=== PATIENT | male | born 1965 | race Caucasian/White ===

== ENCOUNTER 2017-03-11 12:27 | Emergency (ER) | payer BC ==
[~2017-03-11] VITALS: Ht 175.3 cm; Wt 78.9 kg
[~2017-03-11 12:27] MED LIST: ATV5X PO; ESCI1TAB10 PO; RISP0.254 PO; WLLSR100 PO
[2017-03-11 12:36] VITALS: TEMP 36.8; Ht 175.3 cm; Wt 78.9 kg
[2017-03-11] MEDS ORDERED: ACETAMINOPHEN 500 MG TAB PO STA (13:06)
[2017-03-11] MEDS ORDERED: KETOROLAC TROMETHAMINE 60 MG/2 ML VIAL IM STA (13:06)
[2017-03-11] MEDS ORDERED: CYCLOBENZAPRINE HCL 5 MG TAB PO STA (13:06)
--- NOTE | 2017-03-11 13:07 | EMERGENCY ROOM VISIT NOTE ---
History Report prepared by Radha: Karrie Gupta Under the Supervision of: Dr. Hubert Sow M.D. First contact with patient: 12:51 Chief Complaint: BACK PAIN Stated Complaint: R SIDED LOWER BACK PAIN,TESTICULAR PAIN History of Present Illness The patient is a 52 year old white male with a past medical history of kidney stones who presents to the ED with a cc of persistent right lower back pain beginning 8 days ago. Positive right testicular pain, right buttocks, thigh, and groin numbness. Negative nausea, vomiting, fever, chills, rash, bruising. He currently rates his discomfort as a 5/10 in severity. The patient states that 8 days ago his pain began and states that he tried exercising his way through the pain. He states that he then went to the chiropractor and had his back adjusted that caused numbness to his right buttocks, thigh, and groin. The patient states that his pain is worsened with movement, and is slightly alleviated with standing. He describes his pain as a sharp pain, but also a burning pain that is similar to his previous kidney stones. The patient states that he typically exercises daily. He denies any recent heavy lifting, but notes that he may have overdone it with yoga. The patient reports alcohol use, but denies any tobacco or drug use. Source of History: patient Onset: 8 days ago Position: back (right lower) Symptom Intensity: 5/10 Quality: burning, sharp Timing: worsening (persistent) Associated Symptoms: + numbness (right buttocks, thigh and groin), No fevers , No chills, No nausea, No vomiting Note: Associated symptoms: right testicular pain Review of Systems See HPI for pertinent positives and negatives. A total of ten systems were reviewed and were otherwise negative. Past Medical & Surgical Medical Problems: (1) Ureteral calculus, right Family History Patient reports no known family medical history. Social History Smoking Status: Never Smoker Alcohol Use: occasionally Drug Use: none Marital Status: Occupation Status: employed Current/Historical Medications Scheduled Prednisone (Prednisone), 50 MG PO DAILY Tramadol Hcl (Ultram), 50 MG PO Q8H Allergies Coded Allergies: Lamotrigine (Unverified Allergy, Severe, "COVERED SPOTS, THEN ITCHY SKIN ARM AND LEGS", 10/02/15) Physical Exam Vital Signs Date Time Temp Pulse Resp B/P (MAP) Pulse Ox O2 Delivery O2 Flow Rate FiO2 03/11/17 14:37 68 16 123/77 100 Room Air 03/11/17 12:36 36.8 87 17 121/78 98 Room Air Physical Exam GENERAL: Awake, alert, well-appearing, NAD HENT: Normocephalic, atraumatic. EYES: Normal conjunctiva. Sclera non-icteric. NECK: Supple. No nuchal rigidity. FROM. RESPIRATORY: CTAB, no rhonchi, wheezing, crackles CARDIAC: RRR, no MRG ABDOMEN: Soft, NTND, BS+ BACK: No CVA tenderness, reproducible right lower lumbar tenderness to palpation , negative elaine test. MSK: No chest wall TTP, no LE edema NEURO: GCS 15, CN 2-12 intact, moves all 4s on command, complains of numbness of right anterior proximal thigh, no saddle anesthesia SKIN: No rash or jaundice noted. Medical Decision & Procedures ER Provider Diagnostic Interpretation: X-ray: Per my interpretation, radiologist review. L-SPINE MIN 4 VIEWS ROUTINE CLINICAL HISTORY: Back pain. Right groin numbness. No known injury. COMPARISON: Lumbar spine radiographs June 01, 2012. FINDINGS: Alignment of the lumbar spine is anatomic. Vertebral body heights are maintained. There is no fracture or suspicious lesion. There is mild disc space narrowing with mild osteophytosis. There is mild facet arthrosis. IMPRESSION: 1. No acute fracture or subluxation of the lumbar spine. 2. Mild multilevel degenerative disc disease and facet arthrosis of the lumbar spine. Electronically signed by: Maurilio Collins M.D. 03/11/2017 2:31 PM Dictated Date/Time: 03/11/2017 2:30 PM Laboratory Results Test 03/11/17 13:30 Urine Color YELLOW Urine Appearance CLEAR (CLEAR) Urine pH 5.0 (4.5-7.5) Urine Specific [place] 1.025 (1.000-1.030) Urine Protein NEG (NEG) Urine Glucose (UA) NEG (NEG) Urine Ketones NEG (NEG) Urine Occult Blood NEG (NEG) Urine Nitrite NEG (NEG) Urine Bilirubin NEG (NEG) Urine Urobilinogen NEG (NEG) Urine Leukocyte Esterase NEG (NEG) Laboratory results reviewed by me Medications Administered Medications (Trade) Dose Ordered Sig/Jr Route Start Time Stop Time Status Last Admin Dose Admin Acetaminophen (Tylenol Tab) 1,000 mg NOW STAT PO 03/11/17 13:06 03/11/17 13:08 DC 03/11/17 13:24 1,000 MG Ketorolac Tromethamine (Toradol Inj) 60 mg NOW STAT IM 03/11/17 13:06 03/11/17 13:08 DC 03/11/17 13:24 60 MG Cyclobenzaprine HCl (Flexeril Tab) 10 mg ONE STAT PO 03/11/17 13:06 03/11/17 13:08 DC 03/11/17 13:23 10 MG Prednisone (PredniSONE TAB) 60 mg STK-MED ONCE .ROUTE 03/11/17 13:19 03/11/17 13:20 DC 03/11/17 13:23 50 MG ED Course 1255: The patient was evaluated in room A3. A complete history and physical exam was performed. 1445: I reevaluated the patient and he is resting comfortably. I discussed the exam findings with him and I discussed the treatment plan. He verbalized complete understanding and agreement. He is ready to go home. Medical Decision Differential diagnosis: Etiologies such as musculoskeletal, disc herniation, fracture, aortic disease, metastatic disease, cord compression, discitis, infection, renal colic, gastrointestinal, acute exacerbation of chronic back pain, sciatica, cauda equina, as well as others were entertained. The patient is a 52 year old white male with a past medical history of kidney stones who presents to the ED with a cc of persistent right lower back pain beginning 8 days ago. The patient was seen and evaluated the bedside. Patient was complaining of some back pain that had been ongoing for approximately 8 days. Patient described the right paraspinal lumbar area. Patient states that he does do a fair amount of yoga and other exercise. Patient states that he woke up with this pain was not after doing any exercise or heavy lifting. Patient was recent seen by chiropractor which point he had some manipulation completed. Patient states he has taken some Advil for some time but nothing else. On exam the patient did complain of some numbness just over the proximal anterior thigh. Patient does not have any bulges does not have any other pain. Patient does have questionable straight leg raise of the right lower extremity as he does have some shooting pain but it does not progress past the thigh. She did have plain films that were completed. Patient did state that he did have a prior history of kidney stones and so urinalysis was sent as well. Patient was also given pain control. Upon reassessment of the patient patient was feeling improved. His L spine series did not show any acute fracture or misalignment. Patient's urinalysis was negative for blood or infection. I did discuss this with the patient. Patient was told that he may continue outpatient follow-up and treatment and was given prescriptions for some additional pain and inflammation. Patient was told to follow-up with his PCP. Do not believe this is cauda equina as patient has no saddle anesthesia no definitive weakness in the lower extremities and does not have any bowel or bladder incontinence or retention. Patient was informed that if he experiences any of the affirmation findings he should return to the emergency department for further evaluation. Patient was in agreement with this plan of care. Patient was given strict follow -up, discharge, and return precautions. All questions were answered. Patient was deemed suitable for outpatient follow-up at this time. Patient agreed with the plan of care and was safely discharged home. Medication Reconcilliation Current Medication List: was personally reviewed by me Impression Primary Impression: Back pain Scribe Attestation The scribe's documentation has been prepared under my direction and personally reviewed by me in its entirety. I confirm that the note above accurately reflects all work, treatment, procedures, and medical decision making performed by me. Departure Information Dispostion Home / Self-Care Prescriptions Tramadol Hcl (ULTRAM) 50 Mg Tab 50 MG PO Q8H, #12 TAB PRN PAIN Prov: Hubert Sow M.D. 03/11/17 Prednisone (PREDNISONE) 50 Mg Tab 50 MG PO DAILY for 4 Days, #44 TAB Prov: Hubert Sow M.D. 03/11/17 Referrals Meño Pan III, CRNP (PCP) Forms HOME CARE DOCUMENTATION FORM, IMPORTANT VISIT INFORMATION Patient Instructions Back Pain - [facility], Back Pain Relieve, My [facility] Additional Instructions Please return to the emergency department if you have worsening or recurrent symptoms not amenable to at-home treatment. Please call for a follow-up appointment with her primary care physician. Please take your medications as prescribed. If you have other concerns and/or complaints please feel free to also call your primary care physician's office or return the ED for further evaluation, management, and treatment. You may take 600 mg Ibuprofen every 6 hours as needed for pain with food for no more than 2 consecutive days. You may take tylenol 1000 mg every 6 hours as needed for pain. You may take motrin and tylenol separately or at the same time. Take your medications as prescribed. Take steroids with food preferably in the morning. Please consider moist heat or ice to the lower back. Please continue stretching exercises as you're able. You have been examined and treated today on an emergency basis only. This is not a substitute for, or an effort to provide, complete comprehensive medical care. It is impossible to recognize and treat all injuries or illnesses in a single emergency department visit. It is therefore important that you follow up closely with [facility], your PCP, and/or your specialist(s). Call as soon as possible for an appointment. Thank you for your time and consideration. I look forward to speaking with you again soon. Please don't hesitate to call us if you have any questions. Problem Qualifiers Primary Impression: Back pain Back pain location: low back pain Chronicity: acute Back pain laterality: right Sciatica presence: with sciatica Sciatica laterality: sciatica of right side Qualified Codes: M54.41 - Lumbago with sciatica, right side
[2017-03-11 13:43] LABS: URINE APPEARANCE CLEAR (CLEAR); URINE BILIRUBIN NEG (NEG); URINE COLOR YELLOW; URINE NITRITE NEG (NEG); URINE SPECIFIC GRAVITY 1.025 (1.000-1.030); UROBILINOGEN NEG (NEG)
[2017-03-11 13:44] LABS: MANUAL MICROSCOPIC REQUIRED? NO; REVIEW REQ? NO
--- NOTE | 2017-03-11 14:32 | DIAGNOSTIC IMAGING REPORT ---
L-SPINE MIN 4 VIEWS ROUTINE CLINICAL HISTORY: Back pain. Right groin numbness. No known injury. COMPARISON: Lumbar spine radiographs June 01, 2012. FINDINGS: Alignment of the lumbar spine is anatomic. Vertebral body heights are maintained. There is no fracture or suspicious lesion. There is mild disc space narrowing with mild osteophytosis. There is mild facet arthrosis. IMPRESSION: 1. No acute fracture or subluxation of the lumbar spine. 2. Mild multilevel degenerative disc disease and facet arthrosis of the lumbar spine. Electronically signed by: Maurilio Collins M.D. 03/11/2017 2:31 PM Dictated Date/Time: 03/11/2017 2:30 PM
[2017-03-11 14:37] VITALS: BP 123/77; PULSE 68; O2SAT 100
[2017-03-11] MEDS ORDERED: PRED50TA PO (14:54)
[2017-03-11] MEDS ORDERED: TRAM-453 PO (14:54)
== END 2017-03-11 15:10 | disposition home or self-care (01) ==
LOC: C.EDB 12:29 → C.EDA 15:10
DX: M54.41 Lumbago with sciatica, right side (principal); Z87.442 Personal history of urinary calculi

== ENCOUNTER → 2017-03-29 | Outpatient (CLI) | payer BC ==
[~2017-03-29] MED LIST changes: -ATV5X PO; -ESCI1TAB10 PO; -RISP0.254 PO; +TRAM-453 PO; -WLLSR100 PO
--- NOTE | 2017-03-29 12:32 | DIAGNOSTIC IMAGING REPORT ---
ABDOMEN ULTRASOUND FOR HERNIA CLINICAL HISTORY: R19.8 Abdominal fullness in right lower quadrant. COMPARISON STUDY: Abdomen and pelvis CT 07/31/2014. FINDINGS: Real-time sonographic imaging of the right inguinal region was performed. There appears to be a tiny focus of fat entering the proximal right inguinal canal. This suggests a tiny inguinal hernia. No fluid collections or masses identified within the right inguinal region. IMPRESSION: Suggestion of a tiny right inguinal hernia. Electronically signed by: Giancarlo Navarro M.D. 03/29/2017 12:31 PM Dictated Date/Time: 03/29/2017 12:29 PM
== END | disposition home or self-care (01) ==
LOC: C.ULTR 11:46
PROVIDERS: ATTEND Nurse Practitioner Family
DX: R19.8 Other specified symptoms and signs involving the digestive system and abdomen (principal)

== ENCOUNTER → 2017-05-19 | Outpatient (CLI) | payer OTHER | END | disposition home or self-care (01) | LOC: C.LAB1850 11:35 | PROVIDERS: ATTEND Neuromusculoskeletal Medicine & OMM | DX: Z11.3 Encounter for screening for infections with a predominantly sexual mode of transmission (principal) ==

== ENCOUNTER → 2017-11-27 | Outpatient (CLI) | payer OTHER | END | disposition home or self-care (01) | LOC: C.LABSPEC 17:08 | PROVIDERS: ATTEND Nurse Practitioner Family | DX: J02.9 Acute pharyngitis, unspecified (principal) ==

== ENCOUNTER 2021-09-29 12:48 | Observation (INO) ==
[2021-09-29 13:34] LABS: Basophils # (auto) 0.04 K/uL (0-0.2); Basophils % (auto) 0.6 %; Eosinophils # (auto) 0.17 K/uL (0-0.5); Eosinophils % (auto) 2.6 %; Hematocrit (blood only) 42.5 % (42-52); Hemoglobin 13.8 g/dL (14.0-18.0); Immature Granulocytes # (auto) 0.02 K/uL (0.00-0.02); Immature Granulocytes % (auto) 0.3 %; Lymphocytes # (auto) 1.89 K/uL (1.2-3.4); Lymphocytes % (auto) 29.4 %; Mean Corpuscular Hemoglobin 23.4 pg (25-34); Mean Corpuscular Hgb Conc 32.5 g/dL (32-36); Mean Platelet Volume 9.9 fL (7.4-10.4); Monocytes # (auto) 0.55 K/uL (0.11-0.59); Monocytes % (auto) 8.6 %; Neutrophils # (auto) 3.75 K/uL (1.4-6.5); Neutrophils % (auto) 58.5 %; Platelet Count 183 K/uL (130-400); RDW Coefficient of Variation 14.5 % (11.5-14.5); RDW Standard Deviation 38.3 fL (36.4-46.3); White Blood Count 6.42 K/uL (4.8-10.8)
[2021-09-29 13:49] LABS: RBC Morphology Unremarkable
[2021-09-29 13:59] LABS: Albumin Globulin Ratio 1.8 (0.9-2); Albumin Level 4.3 gm/dl (3.4-5.0); BUN Creatinine Ratio 14.6 (10-20); Bilirubin,Total 0.9 mg/dl (0.2-1.0); Creatinine Clr Calc Pharmacy 79.1 ml/min; Est GFR (Non-African American) 80.3 ml/min; Globulin 2.4 gm/dl (2.5-4.0); Total Protein 6.7 gm/dl (6.0-8.3)
[2021-09-29] MEDS ORDERED: NORMOSOL-R 2,000 ML IV ONE (14:06)
--- NOTE | 2021-09-29 14:11 | Emergency Department Note ---
Impression & Plan Rhabdomyolysis, Arm pain ED Provider Note NAME: ASHLEY HARLEY AGE: 56 SEX: M : 1965 ARRIVES VIA: Walk-In INFORMANT: Patient ED PROVIDER(S): Toni Miguel DO CHIEF COMPLAINT: B/L arm pain HPI: Patient is a 56-year-old male who presents the ER for bilateral arm pain. He notes he was working out this past Monday and overdid it with his arms. Monday and Monday his arms were sore but then it began to significantly worsen. He was seen and evaluated in the ER last night and had an elevated CK and was instructed to stay but he wanted to go home. He was called by his PCP today and told to come back in. He started to have fullness in his left arm. His right arm is becoming more taut but denies any tingling or numbness or paresthesias. No weakness in his arms. Not noticed any blood in his urine. ROS: See above HPI for pertinent positives & negatives. A total of 10 systems reviewed and were otherwise negative. PAST MEDICAL HISTORY:See Below PAST SURGICAL HISTORY:See Below FAMILY HISTORY:See Below SOCIAL HISTORY:See Below HOME MEDICATIONS:See Below ALLERGIES:See Below VITALS:See Below PHYSICAL EXAMINATION: GENERAL: Sitting up in bed, alert, well appearing, well nourished, no distress, non-toxic EYE EXAM: normal conjunctiva. OROPHARYNX: mucous membranes are moist LUNGS: Clear to auscultation. Normal chest wall mechanics HEART: no murmurs, S1 normal and S2 normal ABDOMEN: abdomen soft, non-tender, normo-active bowel sounds, no masses, no rebound or guarding. UPPER EXTREMITIES: Right biceps and forearm significantly larger than left with faint surrounding erythema. Radial pulses are 2 out of 4 bilaterally. Flexion-extension of bilateral shoulders elbows wrist and grasp 5 out of 5 bilaterally. Sensations intact LOWER EXTREMITIES: No pitting edema. NEURO EXAM: Normal sensorium, cranial nerves II-XII grossly intact, normal speech, no gross weakness of arms, no gross weakness of legs. MEDICAL DECISION MAKING: Patient is a 56-year-old male who presents ER with above-stated complaint. IV was established blood was obtained. Labs show no significant leukocytosis or anemia. BMP along with LFTs bilirubin was unremarkable for an AST of 125 and a CK of 8300 down from 10,000. UA was clean. There is no blood in the urine. Duplex of the right upper extremity was performed and was negative per his request. Patient was given 2 L normal salt. Patient was updated bedside. Patient was discussed the hospitalist admitted for further work-up. Triage Nursing notes reviewed. Limited review of prior medical records performed Vital Signs: reviewed and remarkable for HTN Differential diagnosis: Fracture, subluxation, dislocation, contusion, ligamentous injury, neurovascular, compartment syndrome, rhabdomyolysis, as well as other patho logies. ER treatment provided: See below Diagnostics interpreted by me: ECG: Sinus rhythm rate of 64 Normal axis No PVCs QTC 412 Cardiac Monitoring: An order was placed for continuous cardiac monitoring. The monitor shows a rate of 70 with sinus rhythm. Laboratory studies: As stated above and show below. Imaging studies: See below Consultation(s): Discussed with the hospitalist for further evaluation Procedures: none Critical Care: None Past Med/Surg History Medical History Asymptomatic PVCs ON OCC Bilateral tinnitus Depression CHRONIC Hypothyroidism Kidney stones Sensorineural hearing loss (SNHL) of both ears Surgical History History of colonoscopy Nasal fracture Torsion of testicle LEFT Family History Grandmother (Paternal) Family history of diabetes mellitus Denies family history of Ovarian cancer Prostate cancer Myocardial infarction Breast cancer Colorectal cancer Social History Smoking Status: Never smoker Second Hand Exposure: No; Hx Alcohol Use: Yes Alcohol type: beer, wine and hard liquor Alcohol Intake Frequency: 4 or More x per/Week Hx Substance Use: No Preferred Language: Georgian Communication Ability: Effective Visual Impairment: No Limitations Hearing Ability: Normal Gear Room Keeper Required: No Beliefs That Will Affect Care: None marital status: Current Living Situation: Family Current Living Situation Comment: W/ SON current occupational status: employed current occupation: [employer] How many Children do You have: 2 Feels Safe at Home: Yes Childhood Exposure to Second-Hand Smoke: Yes caffeine: Yes during the past year weight has: decreased > 10 lbs Dental Care, Regularly: Yes Physical Activity Frequency: 3-4 Times per Week Seatbelt Use: always Sunscreen Use: Yes Assistive Devices: Glasses Allergies Allergies Allergy/AdvReac Type Severity Reaction Status Date / Time lamotrigine Allergy Severe "COVERED Verified 09/29/21 16:35 SPOTS, THEN ITCHY SKIN ARM AND LEGS" cat dander Allergy Unknown Verified 09/29/21 16:35 Home Meds Home Medications Medication Instructions Recorded Confirmed mirtazapine 30 mg tablet 30 mg PO HS 10/15/18 09/29/21 loratadine 10 mg tablet (Claritin) 10 mg PO DAILY 09/22/21 09/29/21 ibuprofen 200 mg tablet (Motrin IB) 600 mg PO Q6H PRN 09/29/21 09/29/21 Previous Rx's Medication Instructions Recorded levothyroxine 50 mcg tablet 50 mcg PO DAILY #90 tab 05/05/21 hydrocortisone 2.5 % topical cream 1 applic NV DAILY PRN #30 g 09/22/21 with perineal applicator (Proctozone-HC) Results & Data (ED) Vital Signs Vital Signs - 24 hr 09/29/21 12:52 09/29/21 13:33 09/29/21 15:55 Temperature 37.0 C Temperature Source Temporal Artery Scan Pulse Rate 69 Pulse Rate [Apical] 67 65 Pulse Rhythm [Apical] Regular Regular Pulse Strength [Apical] Normal Respiratory Rate 18 16 16 Respiratory Effort / Characteristics Non-Labored Non-Labored Spontaneous Non-Labored Spontaneous Respiratory Depth Normal Normal Respiratory Pattern Regular Regular Blood Pressure 155/97 H Blood Pressure [Left Arm] 143/109 H 141/90 H Blood Pressure Mean 116 Blood Pressure Mean [Left Arm] 120 107 Blood Pressure Position [Left Arm] Lying Lying Pulse Oximetry 100 99 100 Oxygen Delivery Method Room Air Room Air Room Air Sepsis Recent Fever Within 48 Hours No Sepsis New/Unexplained Change in Mental Status N/A Sepsis Action Taken by Nursing No Action Required Laboratory Data Result diagrams: 09/29/21 13:10 09/29/21 13:10 Lab Results 09/29/21 09/29/21 09/29/21 Range/Units 13:10 13:10 13:10 WBC 6.42 (4.8-10.8) K/uL RBC 5.90 (4.7-6.1) M/uL Hgb 13.8 L (14.0-18.0) g/dL Hct 42.5 (42-52) % MCV 72.0 L (80-100) fL MCH 23.4 L (25-34) pg MCHC 32.5 (32-36) g/dL RDW Std Deviation 38.3 (36.4-46.3) fL RDW Coeff of Puja 14.5 (11.5-14.5) % Plt Count 183 (130-400) K/uL MPV 9.9 (7.4-10.4) fL Immature Gran % (Auto) 0.3 % Neut % (Auto) 58.5 % Lymph % (Auto) 29.4 % [place] % (Auto) 8.6 % Eos % (Auto) 2.6 % Baso % (Auto) 0.6 % Neut # (Auto) 3.75 (1.4-6.5) K/uL Lymph # (Auto) 1.89 (1.2-3.4) K/uL [place] # (Auto) 0.55 (0.11-0.59) K/uL Eos # (Auto) 0.17 (0-0.5) K/uL Baso # (Auto) 0.04 (0-0.2) K/uL Immature Gran # (Auto) 0.02 (0.00-0.02) K/uL RBC Morphology Unremarkable Sodium 138 (136-145) mmol/L Potassium 4.0 (3.5-5.1) mmol/L Chloride 106 (98-107) mmol/L Carbon Dioxide 29 (21-32) mmol/L Anion Gap 3 (3-11) BUN 15 (6-23) mg/dl Creatinine 1.03 (0.6-1.4) mg/dl Est Cr Clr Drug Dosing 79.1 ml/min Est GFR ( Amer) 93.0 ml/min Est GFR (Non-Af Amer) 80.3 ml/min BUN/Creatinine Ratio 14.6 (10-20) Glucose 85 (70-99(Fasting)) mg/dl Calcium 9.0 (8.5-10.1) mg/dl Total Bilirubin 0.9 (0.2-1.0) mg/dl AST 125 H (13-39) U/L ALT 31 (7-52) U/L Alkaline Phosphatase 53 (34-104) U/L Total Creatine Kinase 8299 H (30-223) U/L Total Protein 6.7 (6.0-8.3) gm/dl Albumin 4.3 (3.4-5.0) gm/dl Globulin 2.4 L (2.5-4.0) gm/dl Albumin/Globulin Ratio 1.8 (0.9-2) Urine Color Urine Appearance (Clear) Urine pH (4.5-7.5) Ur Specific [place] (1.000-1.030) Urine Protein (Negative) Urine Glucose (UA) (Negative) Urine Ketones (Negative) Urine Blood (Negative) Urine Nitrite (Negative) Urine Bilirubin (Negative) Urine Urobilinogen (Negative) Ur Leukocyte Esterase (Negative) 09/29/21 Range/Units 15:25 WBC (4.8-10.8) K/uL RBC (4.7-6.1) M/uL Hgb (14.0-18.0) g/dL Hct (42-52) % MCV (80-100) fL MCH (25-34) pg MCHC (32-36) g/dL RDW Std Deviation (36.4-46.3) fL RDW Coeff of Puja (11.5-14.5) % Plt Count (130-400) K/uL MPV (7.4-10.4) fL Immature Gran % (Auto) % Neut % (Auto) % Lymph % (Auto) % [place] % (Auto) % Eos % (Auto) % Baso % (Auto) % Neut # (Auto) (1.4-6.5) K/uL Lymph # (Auto) (1.2-3.4) K/uL [place] # (Auto) (0.11-0.59) K/uL Eos # (Auto) (0-0.5) K/uL Baso # (Auto) (0-0.2) K/uL Immature Gran # (Auto) (0.00-0.02) K/uL RBC Morphology Sodium (136-145) mmol/L Potassium (3.5-5.1) mmol/L Chloride (98-107) mmol/L Carbon Dioxide (21-32) mmol/L Anion Gap (3-11) BUN (6-23) mg/dl Creatinine (0.6-1.4) mg/dl Est Cr Clr Drug Dosing ml/min Est GFR ( Amer) ml/min Est GFR (Non-Af Amer) ml/min BUN/Creatinine Ratio (10-20) Glucose (70-99(Fasting)) mg/dl Calcium (8.5-10.1) mg/dl Total Bilirubin (0.2-1.0) mg/dl AST (13-39) U/L ALT (7-52) U/L Alkaline Phosphatase (34-104) U/L Total Creatine Kinase (30-223) U/L Total Protein (6.0-8.3) gm/dl Albumin (3.4-5.0) gm/dl Globulin (2.5-4.0) gm/dl Albumin/Globulin Ratio (0.9-2) Urine Color Yellow Urine Appearance Clear (Clear) Urine pH 7.5 (4.5-7.5) Ur Specific [place] 1.009 (1.000-1.030) Urine Protein Negative (Negative) Urine Glucose (UA) Negative (Negative) Urine Ketones Negative (Negative) Urine Blood Negative (Negative) Urine Nitrite Negative (Negative) Urine Bilirubin Negative (Negative) Urine Urobilinogen Negative (Negative) Ur Leukocyte Esterase Negative (Negative) Administered Medications Discontinued Medications Parenteral Electrolytes (Plasma-Lyte A) 2,000 mls @ 999 mls/hr IV .Q2H1M ONE Stop: 09/29/21 16:06 Last Infusion: 09/29/21 17:44 Dose: 0 mls/hr Documented by: [id number] Admin: 09/29/21 15:16 Dose: 999 mls/hr Documented by: [id number] Imaging Data Radiologist's Impression: Extremity Venous Study 09/29/21 12:57 US venous doppler UE LT CLINICAL HISTORY: swelling PROCEDURE: Left upper extremity real-time compression venous ultrasound with Duplex and Color Doppler imaging. FINDINGS: Utilizing real-time ultrasonic imaging multiple real time high-resolution ultrasonic images of the deep venous system were performed from the forearm through the subclavian vein including evaluation of the jugular vein. Compression real time ultrasonic imaging was performed in addition to color Doppler imaging and duplex Doppler ultrasound with velocity spectral profile analysis. There is normal compressibility of the deep venous system from the forearm through the subclavian vein. Normal vascular flow is currently identified. No evidence of superficial thrombosis is identified. Impression: No evidence of deep venous thrombus. ACT 112: Negative or not required by law. Electronically signed by: Ramon Quiñones M.D. 09/29/2021 3:12 PM Discharge Plan Visit Data Chief Complaint: Swelling/Edema to Extremity Stated Complaint: right arm swelling ED Provider: Toni Miguel Discharge Problem: Rhabdomyolysis, Arm pain Forms Stand Alone Forms: [facility] Prescriptions Prescriptions: No Action levothyroxine 50 mcg tablet 50 mcg PO DAILY Qty: 90 RF: 1 loratadine [Claritin] 10 mg tablet 10 mg PO DAILY RF: 0 hydrocortisone [Proctozone-HC] 2.5 % cream with perineal applicator 1 applic NV DAILY PRN (Reason: hemorrhoids) Qty: 30 RF: 0 mirtazapine 30 mg Tablet 30 mg PO HS RF: 0 ibuprofen [Motrin IB] 200 mg Tablet 600 mg PO Q6H PRN (Reason: Pain) RF: 0 Referrals Referrals: Meño Pan III, CRNP [Primary Care Provider] - Discharge Problem: Rhabdomyolysis Qualifiers: Rhabdomyolysis type: non-traumatic Qualified Code(s): M62.82 - Rhabdomyolysis Arm pain Qualifiers: Laterality: right Qualified Code(s): M79.601 - Pain in right arm
--- NOTE | 2021-09-29 15:14 | Ultrasound Report ---
US venous doppler UE LT CLINICAL HISTORY: swelling PROCEDURE: Left upper extremity real-time compression venous ultrasound with Duplex and Color Doppler imaging. FINDINGS: Utilizing real-time ultrasonic imaging multiple real time high-resolution ultrasonic images of the de ep venous system were performed from the forearm through the subclavian vein including evaluation of the jugular vein. Compression real time ultrasonic imaging was performed in addition to color Dopple r imaging and duplex Doppler ultrasound with velocity spectral profile analysis. There is normal compressibility of the deep venous system from the forearm through the subclavian vei n. Normal vascular flow is currently identified. No evidence of superficial thrombosis is identified. Impression: No evidence of deep venous thrombus. ACT 112: Negative or not required by law. Electronically signed by: Ramon Quiñones M.D. 09/29/2021 3:12 PM
[2021-09-29 15:48] LABS: Appearance Urine Clear (Clear); Bilirubin Urine Negative (Negative); Blood Urine Negative (Negative); Color Urine Yellow; Glucose Urine UA Negative (Negative); Ketones Urine Negative (Negative); Leukocyte Esterase Urine Negative (Negative); Nitrite Urine Negative (Negative); Protein Urine Negative (Negative); Specific Gravity Urine 1.009 (1.000-1.030); Urobilinogen Urine Negative (Negative); pH Urine 7.5 (4.5-7.5)
--- NOTE | 2021-09-29 18:05 | History & Physical Report ---
Date of Service September 29, 2021 Assessment & Plan (1) Rhabdomyolysis: Plan: Improving with downtrending CK but remains with unilateral right arm swelling - Hold further crystalloid infusion as he is adequately urinating and with intact renal function - AST elevated and downtrending - Allow to eat and drink, follow urine output - without trauma, medication change, no supplements used and no illness or viral prodrome (2) Arm pain: Plan: In the setting of rhabdo- remains with unilateral swelling - compartments soft- muscles nontender- right bicep with some muscle tension - Ultrasound remains negative for DVT - Will obtain CXR - No lymphadenopathy in axillae or clavicular - No arm fatigue with exercise and no swelling in upper chest or neck (3) Anemia, macrocytic: Plan: Takes OTC B12 supplementation (4) Hypothyroidism: Plan: Continue synthroid (5) Depression: Plan: Continue mirtazapine History of Present Illness Primary Care Provider: Meño Pan III, [employer] OF [employer] 56 YOM with medical history of: Hypothyroidism, hemorrhoids, seasonal allergies. Patient returns to the [facility] today at the direction of his PCP for concerns of continued swelling of his right arm in the diagnosis of rhabdomyolysis. The patient was diagnosed with rhabdo on 09/28/21 in the setting of working out in the gym with- dips, weight assisted pull ups and bike rides over the weekend. The patient normally goes to the gym but took two weeks off previously for his honeymoon. His original CK was 11k and has downtrended to 8K. He reports that he was called today by his PCP for evaluation and do to the fact that his right arm was still swollen he was told to come to the [facility] and cancel his business trip for evaluation of DVT. OVerall the patient remains with right arm swelling from the bicep down to the wrist, with full range of motion, and good pulses. The compartments are soft. His CK is downtrending. He is making excellent clear urine. Renal function is intact. He had ultrasound evaluation of the right arm in the EMD-this was evaluated from forearm to subclavian- negative for occlusion and normal compressibility. Patient states that the rest of his body is not in discomfort and evaluation is consistent with the rest of his muscles being soft and not tense. He denies any trauma, new me dications, or feeling ill. He does endorse having a tick bite on his left shoulder last week. Will send tick borne labs. Patient will be admitted for following of his arm swelling and rest. He received 2liters of plasmalyte by the EMD. He will not require any further IVF. COVID test on admission is: NEGATIVE Allergies Allergy/AdvReac Type Severity Reaction Status Date / Time lamotrigine Allergy Severe "COVERED Verified 09/29/21 16:35 SPOTS, THEN ITCHY SKIN ARM AND LEGS" cat dander Allergy Unknown Verified 09/29/21 16:35 Home Medications Medication Instructions Recorded Confirmed Type mirtazapine 30 mg tablet 30 mg PO HS 10/15/18 09/29/21 History levothyroxine 50 mcg tablet 50 mcg PO DAILY #90 tab 05/05/21 09/29/21 Rx hydrocortisone 2.5 % topical cream 1 applic ME DAILY PRN #30 g 09/22/21 09/29/21 Rx with perineal applicator (Proctozone-HC) loratadine 10 mg tablet (Claritin) 10 mg PO DAILY 09/22/21 09/29/21 History ibuprofen 200 mg tablet (Motrin IB) 600 mg PO Q6H PRN 09/29/21 09/29/21 History Past Med/Surg History Medical History (Updated 09/29/21 @ 18:41 by GABRIELLA Diggs) Asymptomatic PVCs ON OCC Bilateral tinnitus Depression CHRONIC Hypothyroidism Kidney stones Sensorineural hearing loss (SNHL) of both ears Surgical History History of colonoscopy Nasal fracture Torsion of testicle LEFT Family History Grandmother (Paternal) Family history of diabetes mellitus Denies family history of Ovarian cancer Prostate cancer Myocardial infarction Breast cancer Colorectal cancer Social History Smoking Status: Never smoker Second Hand Exposure: No; Hx Alcohol Use: Yes Alcohol type: beer, wine and hard liquor Alcohol Intake Frequency: 4 or More x per/Week Hx Substance Use: No Preferred Language: Cape Verdean Communication Ability: Effective Visual Impairment: No Limitations Hearing Ability: Normal Foreign Language Stenographer Required: No Beliefs That Will Affect Care: None marital status: Current Living Situation: Spouse Current Living Situation Comment: W/ SON current occupational status: employed current occupation: [employer] How many Children do You have: 2 Feels Safe at Home: Yes Childhood Exposure to Second-Hand Smoke: Yes caffeine: Yes during the past year weight has: decreased > 10 lbs Dental Care, Regularly: Yes Physical Activity Frequency: 3-4 Times per Week Seatbelt Use: always Sunscreen Use: Yes Assistive Devices: None Review of Systems Review of Systems: REVIEW OF SYSTEMS: Constitutional: No fever, sweats or chills Eyes: No diplopia, no worsening or blurred vision ENT: normal hearing, no trouble swallowing Respiratory: No cough, sputum, dyspnea at rest or on exertion Cardiovascular: No chest pain, tightness or palpitations Abdomen: No pain, nausea, vomiting, diarrhea or constipation Musculoskeletal: (+) right arm swelling and tightness, No joint pain, calf pain, swelling Neurologic: No weakness, numbness/tingling, or balance problems Psychiatric: No anxiety or depression Skin: No rash or itch Physical Exam Physical Exam: PHYSICAL EXAM: General: awake, alert, no apparent distress Head: Normocephalic, atraumatic ENT: PERRL, EOMI, no pharyngeal exudate, mucous membranes moist Neuro: AAO x 3, speech clear and appropriate, strength intact bilaterally 5/5, sensation intact and equal all extremities and dermatomes, no pronator drift Chest: equal rise and fall of the chest, no accessory muscle use, no heaves or thrills, Clear to auscultation, on room air, Cardiac: Regular rate and rhythm, telemetry reviewed, skin warm dry, cap refill <3 seconds, peripheral pulses +2 no JVD, no murmur, no edema GI: NABS x 4 quadrants, soft, nontender to palpation, no rebound, guarding or tenderness : Spontaneously voiding, no pain, no CVA tenderness, MSK: right arm softly swollen, non pitting, non painful. Cap refill intact, pulses strong 2+, forearm compartment soft, full range of motion to elbow without pain, bicep head tense, triceps soft and shoulder soft. NO lymphadenopathy. Psych: Normal mood and affect Skin: no rash or erythema Results & Data Results & Data ([facility]) Vital Signs (Past 12 Hours) Vital Signs Temp Pulse Pulse Resp BP BP Pulse Ox 09/29/21 15:55 65 16 141/90 H 100 09/29/21 13:33 67 16 143/109 H 99 09/29/21 12:52 37.0 C 69 18 155/97 H 100 Laboratory Results Abnormal lab results 09/29/21 09/29/21 09/29/21 Range/Units 13:10 13:10 13:10 Hgb 13.8 L (14.0-18.0) g/dL MCV 72.0 L (80-100) fL MCH 23.4 L (25-34) pg AST 125 H (13-39) U/L Total Creatine Kinase 8299 H (30-223) U/L Globulin 2.4 L (2.5-4.0) gm/dl Diagnostic Findings Extremity Venous Study 09/29/21 12:57 US venous doppler UE LT CLINICAL HISTORY: swelling PROCEDURE: Left upper extremity real-time compression venous ultrasound with Duplex and Color Doppler imaging. FINDINGS: Utilizing real-time ultrasonic imaging multiple real time high-resolution ultrasonic images of the deep venous system were performed from the forearm through the subclavian vein including evaluation of the jugular vein. Comp ression real time ultrasonic imaging was performed in addition to color Doppler imaging and duplex Doppler ultrasound with velocity spectral profile analysis. There is normal compressibility of the deep venous system from the forearm through the subclavian vein. Normal vascular flow is currently identified. No evidence of superficial thrombosis is identified. Impression: No evidence of deep venous thrombus. ACT 112: Negative or not required by law. Electronically signed by: Ramon Quiñones M.D. 09/29/2021 3:12 PM Medications Administered Discontinued Medications Parenteral Electrolytes (Plasma-Lyte A) 2,000 mls @ 999 mls/hr IV .Q2H1M ONE Stop: 09/29/21 16:06 Last Infusion: 09/29/21 17:44 Dose: 0 mls/hr Documented by: [id number] Admin: 09/29/21 15:16 Dose: 999 mls/hr Documented by: [id number] Code Status & VTE Plan VTE Prophylaxis Plan VTE Prophylaxis will be ordered: Yes Supervising Physician Co-Signing Physician Notes I personally saw and examined the patient. I verified all reyna points and agree with GABRIELLA Giraldo with the following exceptions and/or additions: 56 year old male presents for arm swelling and concern by his outpatient physicians. Previously diagnosed rhabdomyolysis, improving CK. Cr stable. No DVT on venous doppler. O/E HS1+2, no murmurs, Chest CTAB, right lower arm without skin changes and soft. A/P Rhabdomyolysis - patient with clear urine. No need for excessive fluids overnight as already had 2L Plasma-lyte given in the ER. Repeat CK in AM. PG Care Time/CCT Total # of Minutes Spent Total Time Spent with Patient: Total time spent is greater than 50% in coordination of care (as documented) at patient's floor/unit and/or counseling patient: Coding Level of Care Code 84055 Initial Inpt Care Lvl 2 Diagnoses Rhabdomyolysis M62.82 Rhabdomyolysis type: non-traumatic Arm pain M79.601 Laterality: right Anemia, macrocytic D53.9 Hypothyroidism E03.9 Depression F32.9 (1) Arm pain Laterality: right Qualified Code(s): M79.601 - Pain in right arm (2) Rhabdomyolysis Rhabdomyolysis type: non-traumatic Qualified Code(s): M62.82 - Rhabdomyolysis
--- NOTE | 2021-09-29 19:22 | Electrocardiogram Report ---
Test Reason : Blood Pressure : / mmHG Vent. Rate : 064 BPM Atrial Rate : 064 BPM P-R Int : 150 ms QRS Dur : 098 ms QT Int : 400 ms P-R-T Axes : 016 035 046 degrees QTc Int : 412 ms Normal sinus rhythm Incomplete right bundle branch block When compared with ECG of 22-NOV-2010 13:49, No significant change was found Confirmed by Estevan Jhaveri ([id number]) on 09/29/2021 7:21:28 PM Referred By: Meño Pan Confirmed By:Magdy Jhaveri
--- NOTE | 2021-09-29 19:40 | XRay Report ---
XR chest 1V portable CLINICAL HISTORY: Atypical chest pain. Evaluate chest for pathology/infection. COMPARISON STUDY: Chest radiograph August 17, 2011. FINDINGS: Lung volumes are normal. Lungs are clear. There is no pneumothorax or pleural effusion. Car diac size is normal. Mediastinal contours are normal. There is no evidence for pulmonary edema. IMPRESSION: No acute cardiopulmonary findings. ACT 112: Negative or not required by law. Electronically signed by: Maurilio Collins M.D. 09/29/2021 7:38 PM
[2021-09-29 20:07] LABS: Lyme Ab IgG w/WB Rflx Negative (Negative)
[2021-09-29 20:08] LABS: Lyme Ab IgM w/WB Rflx Negative (Negative)
[2021-09-29] MEDS ORDERED: ACETAMINOPHEN 325 MG TAB PO PRN (21:05)
[2021-09-29] MEDS ORDERED: MIRTAZAPINE TAB 15 MG TAB PO SCH (21:05)
[2021-09-30 06:48] LABS: Basophils # (auto) 0.04 K/uL (0-0.2); Basophils % (auto) 0.7 %; Eosinophils # (auto) 0.18 K/uL (0-0.5); Eosinophils % (auto) 3.3 %; Hematocrit (blood only) 40.7 % (42-52); Hemoglobin 12.8 g/dL (14.0-18.0); Immature Granulocytes # (auto) 0.02 K/uL (0.00-0.02); Immature Granulocytes % (auto) 0.4 %; Lymphocytes # (auto) 1.71 K/uL (1.2-3.4); Lymphocytes % (auto) 31.3 %; Mean Corpuscular Hemoglobin 22.6 pg (25-34); Mean Corpuscular Hgb Conc 31.4 g/dL (32-36); Mean Corpuscular Volume 71.8 fL (80-100); Mean Platelet Volume 9.8 fL (7.4-10.4); Monocytes # (auto) 0.47 K/uL (0.11-0.59); Monocytes % (auto) 8.6 %; Neutrophils # (auto) 3.05 K/uL (1.4-6.5); Neutrophils % (auto) 55.7 %; Platelet Count 157 K/uL (130-400); RDW Coefficient of Variation 14.7 % (11.5-14.5); RDW Standard Deviation 38.7 fL (36.4-46.3); Red Blood Count 5.67 M/uL (4.7-6.1); White Blood Count 5.47 K/uL (4.8-10.8)
[2021-09-30 07:03] LABS: BUN Creatinine Ratio 14.6 (10-20); Calcium 8.7 mg/dl (8.5-10.1); Creatinine Clr Calc Pharmacy 79.1 ml/min; Est GFR (Non-African American) 80.3 ml/min; Phosphorus 3.7 mg/dl (2.5-4.9); Potassium 4.3 mmol/L (3.5-5.1)
[2021-09-30 07:22] LABS: Hypochromasia Present; Ovalocytes 1+
[2021-09-30] MEDS ORDERED: LEVOTHYROXINE SODIUM 50 MCG TABLET PO SCH (09:00)
[2021-09-30] MEDS ORDERED: LORATADINE 10 MG TAB PO SCH (09:00)
--- NOTE | 2021-09-30 18:00 | Discharge Summary ---
Date of Service September 30, 2021 Admission HPI Per Admitting Provider 56 YOM with medical history of: Hypothyroidism, hemorrhoids, seasonal allergies. Patient returns to the [facility] today at the direction of his PCP for concerns of continued swelling of his right arm in the diagnosis of rhab domyolysis. The patient was diagnosed with rhabdo on 09/28/21 in the setting of working out in the gym with- dips, weight assisted pull ups and bike rides over the weekend. The patient normally goes to the gym but took two weeks off previously for his honeymoon. His original CK was 11k and has downtrended to 8K. He reports that he was called today by his PCP for evaluation and do to the fact that his right arm was still swollen he was told to come to the [facility] and cancel his business trip for evaluation of DVT. OVerall the patient remains with right arm swelling from the bicep down to the wrist, with full range of motion, and good pulses. The compartments are soft. His CK is downtrending. He is making excellent clear urine. Renal function is intact. He had ultrasound evaluation of the right arm in the EMD-this was evaluated from forearm to subclavian- negative for occlusion and normal compressibility. Patient states that the rest of his body is not in discomfort and evaluation is consistent with the rest of his muscles being soft and not tense. He denies any trauma, new medications, or feeling ill. He does endorse having a tick bite on his left shoulder last week. Will send tick borne labs. Patient will be admitted for following of his arm swelling and rest. He received 2liters of plasmalyte by the [facility]. He will not require any further IVF. COVID test on admission is: NEGATIVE Principal Diagnosis Rhabdomyolysis Discharge Exam Constitutional WD/WN, vitals as above Eyes EOM intact bilaterally; no conjunctival abnormality ENMT external ear and nose normal, oropharynx normal Neck trachea midline, no thyromegaly normal visual inspection Respiratory normal respiratory effort, lungs clear to auscultation no respiratory distress Cardiovascular RRR, no murmur, no edema Gastrointestinal (Abdomen) Inspection/Auscultation: abdomen normal to inspection; abdomen not distended Musculoskeletal no cyanosis or clubbing, extremities motor strength 5/5 Extremities: + extremities abnormal to inspection (Right arm with mild swelling) Skin no rashes, warm and dry Neurologic moves all extremities and awake Psychiatric Orientation: alert, oriented to person and cooperative Discharge Data Allergies Allergy/AdvReac Type Severity Reaction Status Date / Time lamotrigine Allergy Severe "COVERED Verified 09/29/21 16:35 SPOTS, THEN ITCHY SKIN ARM AND LEGS" cat dander Allergy Unknown Verified 09/29/21 16:35 Consultations 09/29/21 16:10 ED Decision to Admit Stat Ordered Studies 09/29/21 12:57 US venous doppler UE LT Stat Hospital Course (1) Rhabdomyolysis: Improving with downtrending CK but remains with unilateral right arm swelling. - Doppler for RUE DVT was negative on 09/28 and 09/29. - Allowed to eat and drink, follow urine output - Without trauma, medication change, no supplements used and no illness or viral prodrome. Discussed with patient that if this is the only episode, will chalk it up to overworking the arm. However, if he has another episode, may need to look more in-depth regarding metabolic causes as I do not see any other risk factors for this episode. (2) Arm pain: In the setting of rhabdo- remains with unilateral swelling. - Compartments soft- muscles nontender- right bicep with some muscle tension - Ultrasound remains negative for DVT (3) Anemia, macrocytic: Takes OTC B12 supplementation (4) Hypothyroidism: Continue synthroid (5) Depression: Continue mirtazapine Total Time Total Time Spent Total Time Spent (In Minutes): 45 Discharge Plan Discharge Items Patient Disposition: Home - Self-Care Reason For Visit: right arm swelling, rhabdo (improving) Discharge Diagnosis: Right arm swelling, rhabdomyolysis Activity: Resume your previous activity Lifting: Gradually increase as tolerated Exercise/Sports: Gradually increase as tolerated Exercise Comment: Rest for 1 week, then gradually increase from a very gentle level Non-emergency contact: Primary Care Provider Call non-emergency contact if: your symptoms worsen and your pain is not controlled Follow-up/Referrals: Meño Pan III, CRNP [Primary Care Provider] - 10/07/21 4:00 pm (Appointment with Mica QUIROZ) Diet: Regular Addtl Attending Provider Instructions: Mr. Callaway, You were admitted to the hospital with right arm swelling that was found to be muscle damage called rhabdomyolysis. Truthfully, it is a bit of a mystery why this occurred as you report a short hiatus (2 weeks) followed by resumption of a very acceptable/typical work-out. In the first instance of muscle damage, we usually recommend about 1 week of rest, followed by very light work-outs that gradually increase. If you were to have another episode, we would want to work up various metabolic issues, but these are very uncommon. Other common causes don't apply to you either such as trauma, vascular or cardiac surgeries, hines, etc. As such, we will treat this conservatively, and monitor you closely. Please see your PCP in the next week or two to make sure you are feeling better. If you have more pain, more swelling, numbness or tingling in your fingers, or other c oncerning symptoms, call your PCP or come straight to the hospital. Pending Studies at Discharge: No Stand-Alone Forms: [facility] Interview Master, Smoking Cessation Medications and DC Order Prescriptions: Continued levothyroxine 50 mcg tablet 50 mcg PO DAILY Qty: 90 RF: 1 loratadine [Claritin] 10 mg tablet 10 mg PO DAILY RF: 0 hydrocortisone [Proctozone-HC] 2.5 % cream with perineal applicator 1 applic [place] DAILY PRN (Reason: hemorrhoids) Qty: 30 RF: 0 mirtazapine 30 mg Tablet 30 mg PO HS RF: 0 ibuprofen [Motrin IB] 200 mg Tablet 600 mg PO Q6H PRN (Reason: Pain) RF: 0 Discharge Orders: Discharge Order (Routine); Ordered 09/30/21 Ordered By: Mj Jade Admission Data Admit Date/Time: 09/29/21 17:56 Attending Provider: Mj Jade Admit Provider: Yvan Perez Primary Care Provider: Meño Pan III Other Providers: Mj Jade Other Interventions: Discharge Summary Assessment (RN) Last Done: 09/30/21 10:56 Coding Level of Care Code D/C DAY MANAGEMENT >30 MINS Diagnoses Rhabdomyolysis M62.82 Rhabdomyolysis type: non-traumatic Arm pain M79.601 Laterality: right Anemia, macrocytic D53.9 Hypothyroidism E03.9 Depression F32.9
[2021-10-03 05:07] LABS: Babesia microti DNA Not Detected (Not Detected)
== END 2021-09-30 11:09 | disposition home or self-care (01) ==
LOC: ED 12:48 → SUATTDRO 17:56 → INTOOBSV 17:56 → 3W 17:56